=== PATIENT | female | born 1985 | race Caucasian/White ===

== ENCOUNTER 2018-05-03 20:38 | Emergency (ER) | payer MEDICAID ==
[~2018-05-03] VITALS: Ht 152.4 cm; Wt 75.0 kg
[~2018-05-03 20:38] MED LIST: ACET-2178 PO
[2018-05-04] MEDS ORDERED: DIPHENHYDRAMINE 50MG/ML VIAL IV ONE (01:45)
[2018-05-04] MEDS ORDERED: METOCLOPRAMIDE HCL 10MG/2ML VIAL IV ONE (01:45)
[2018-05-04] MEDS ORDERED: KETOROLAC 30MG/ML VIAL IV ONE (01:45)
[2018-05-04] MEDS ORDERED: SODIUM CHLORIDE 0.9% 1,000 ML IV ONE (01:45)
[2018-05-04 04:45] VITALS: BP 98/56
== END 2018-05-04 04:55 | disposition home or self-care (01) ==
LOC: ER 20:38
DX: G43.909 Migraine, unspecified, not intractable, without status migrainosus (principal); Z98.890 Other specified postprocedural states
CPT/HCPCS: 81025; 96361; 96374; 96375; 99283; J1200; J1885; J2765; J7030; Z7610